=== PATIENT | female | born 1955 | race Caucasian/White ===

== ENCOUNTER → 2017-08-24 | Outpatient (CLI) | payer OTHER ==
--- NOTE | 2017-08-24 17:39 | WOMENS IMAGING REPORT ---
EXAM DESCRIPTION: 3D SCREENING MAMMO BILAT COMPLETED DATE/TIME: 08/24/2017 10:46 am REASON FOR STUDY: ROUTINE SCREENING; Z12.31 Z12.31 ENCNTR SCREEN MAMMOGRAM FOR MALIGNANT NEOPLASM O F [place] COMPARISON: Multiple since 2009 TECHNIQUE: Standard craniocaudal and mediolateral oblique views of each breast recorded using digita l acquisition and breast tomosynthesis. LIMITATIONS: None. FINDINGS: Findings present which are benign by mammographic criteria. No suspicious masses, calcifi cations or architectural distortion. Pertinent benign findings: Coarse dense benign appearing calcification right upper outer quadrant fro m fibroadenoma. Read with the assistance of CAD. .[facility] - R2 Cenova Version 1.3 .[facility] - R2 Cenova Version 1.3 .[facility] - R2 Cenova Version 2.4 .[facility] [place] [place] - R2 Cenova Version 2.4 .[facility] - R2 [employer]ov[employer]ual Aids Technician Version 9.2 Benign mammographic findings may include one or more of the following: Smooth masses, popcorn/rim/co arse calcifications, asymmetries, post-procedure changes, and lesions with long-standing stability. IMPRESSION: BENIGN MAMMOGRAPHIC FINDINGS. BIRADS 2 BREAST DENSITY: c. The breasts are heterogeneously dense, which may obscure small masses. BIRAD: 2 BENIGN FINDING(S) RECOMMENDATION: RECOMMENDATION: ROUTINE SCREENING Please continue yearly bilateral screening tomosynthesis in August 2018 COMMENT: The patient has been notified of the results by letter per SA requirements. Additional no tification policies are in place for contacting patient with suspicious or incomplete findings. Quality ID #[id number]: The [employer] recommends an annual screening mammogram for women aged 40 years or over. This facility utilizes a reminder system to ensure that all patients receive reminder letters, and/or direct phone calls for appointments. This includes reminders for routine scr eening mammograms, diagnostic mammograms, or other Breast Imaging Interventions when appropriate. Th is patient will be placed in the appropriate reminder system. The [employer] (ACR) has developed recommendations for screening MRI of the breast s in certain patient populations, to be used in conjunction with mammography. Breast MRI surveillanc e may be appropriate for women with more than 20% lifetime risk of developing breast cancer as deter mined by genetic testing, significant family history of the disease, or history of mantle radiation f or Hodgkins Disease. ACR Practice Guidelines 2008. DBT Technology DBT is a type of tomographic mammography. With conventional mammography, overlapping breast tissue ma y make lesions difficult to detect, even with good compression. DBT uses an x-ray tube that rotates a round the breast, taking images at different angles. These images are then combined to create thin sl ices of the breast that the radiologist can view as a 3D reconstruction. The Hologic unit can perform full-field digital mammograms (2D imaging); or DBT (3D imaging); or both, in a combination mode that quickly performs both the mammogram and the tomosynthesis scan while the breast is still compressed. PQRS 6045F: Fluoroscopic imaging is not utilized for breast tomosynthesis. TECHNICAL DOCUMENTATION: FINDING NUMBER: (1) ASSESSMENT: (1) JOB ID: [id number] [employer]- All Rights Reserved
== END ==
LOC: WI 10:11
PROVIDERS: ATTEND Internal Medicine
DX: Z12.31 Encounter for screening mammogram for malignant neoplasm of breast (principal)
CPT/HCPCS: 77063; G0202; 77067

== ENCOUNTER → 2017-12-03 | Outpatient (CLI) | payer OTHER ==
--- NOTE | 2017-12-05 09:17 | WOMENS IMAGING REPORT ---
EXAM DESCRIPTION: U/S BREAST UNILAT LIMITED COMPLETED DATE/TIME: 12/03/2017 11:14 am REASON FOR STUDY: UNSPECIFIED LUMP; N63.10 N63.10 UNSPECIFIED LUMP IN THE RIGHT BREAST, UNSPECIFIED ROSSY COMPARISON: Mammograms 08/24/2017, 08/07/2016, 04/01/2013, 07/22/2010 TECHNIQUE: Real-time and static grayscale imaging performed of the right breast targeted to the area of clinical concern. Selected color Doppler images recorded. LIMITATIONS: None. FINDINGS: In the area of palpable abnormality, a 2.3 x 2.3 x 1.7 cm mass is present, ill-defined and lobular in shape with internal color flow. This highly suspicious for malignancy and would be rekha ble to ultrasound-guided core biopsy with post biopsy clip placement. Prior mammograms were reviewed. Patient has heterogeneously dense breast tissue. Breast MRI prior t o ultrasound-guided core biopsy may be useful, to evaluate for any other mammographically occult lesi ons which would require biopsy. These findings were discussed with Dr. Avilez, 12/05/2017, 0910 hour s IMPRESSION: 2.3 x 2.3 x 1.7 cm malignant appearing mass right breast 10 to 11 o'clock position. Ult rasound-guided core biopsy is recommended. BIRAD: 5 Highly suggestive of malignancy. Appropriate action should be taken. RECOMMENDATION: RECOMMENDED FOLLOW-UP: Ultrasound-guided core biopsy right breast mass at 10 to 11 o 'clock position, with post biopsy clip placement. Consider pre biopsy MRI of the breasts with contrast. COMMENT: Findings discussed with Dr. Avilez, 12/05/2017, 0910 hours The [employer] [place] [employer] (ACR) has developed recommendations for screening MRI of the breast s in certain patient populations, to be used in conjunction with mammography. Breast MRI surveillanc e may be appropriate for women with more than 20% lifetime risk of developing breast cancer as deter mined by genetic testing, significant family history of the disease, or history of mantle radiation f or Hodgkins Disease. ACR Practice Guidelines 2008. TECHNICAL DOCUMENTATION: JOB ID: [id number] [employer]- All Rights Reserved
== END ==
LOC: WI 10:31
PROVIDERS: ATTEND Specialist
DX: N63.10 Unspecified lump in the right breast, unspecified quadrant (principal)
CPT/HCPCS: 76642

== ENCOUNTER → 2017-12-17 | Day surgery (SDC) | payer OTHER ==
[~2017-12-17] MED LIST: LIDOCAINE 2% INJ (20 MG/ML) 20 ML MDV ONE
--- NOTE | 2017-12-20 16:57 | WOMENS IMAGING REPORT ---
EXAM DESCRIPTION: U/S BREAST BX COMPLETED DATE/TIME: 12/17/2017 2:21 pm REASON FOR STUDY: BREAST LUMP N63.0 UNSPECIFIED LUMP IN UNSPECIFIED BREAST COMPARISON: Multiple previous mammograms TECHNIQUE: The procedure was discussed with the patient and the patient agreed to proceed. The patient was scanned and the palpable mass in the 10 to 11 o'clock position 7 cm from the nipple o f the right breast was localized. This correlates with the area of concern on prior imaging studies. This area was targeted for ultrasound-guided core biopsy. After sterile skin prep and 3.0 mL local lidocaine 1% for skin and deep tissue anesthesia, a 14 gauge coaxial core biopsy needle was used to obtain several cores of tissue from the lesion. Under ultras ound guidance, a ribbon clip was placed in the areas sampled. There were no immediate post-procedure complications. MAMMOGRAM: Postprocedure mammogram was not performed. 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 This could represent phylloides tumor in a pre-existing fibroadenoma. Path ology recommends excisional biopsy for further evaluation. LIMITATIONS: None. FINDINGS: Ultrasound guided breast biopsy as described above. 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 GRIMALDO 1430 HOURS 12/19/2017. COMMUNICATION: FINDINGS WERE DISCUSSED WITH THE PATIENT, 1550 HOURS, 12/19/2017. SHE UNDERSTANDS THAT THIS IS A POTENTIALLY MALIGNANT LESION WHICH REQUIRES EXCISIONAL BIOPSY. SHE HAS A FOLLOW-UP APPOINT MENT WITH DR. FERRIS, 12/21/2017. Patient medication list reviewed: Yes- Quality ID# [id number]:Eligible professional attests to documenting i n the medical record they obtained, updated, or reviewed the patient's current medications. TECHNICAL DOCUMENTATION: JOB ID: [id number] [employer]- All Rights Reserved
== END ==
LOC: WI 12:56
PROVIDERS: ATTEND Specialist
PROC: 0HBT3ZX Excision of Right Breast, Percutaneous Approach, Diagnostic (ICD-10-PCS; principal; 2017-12-17)
DX: N63.0 Unspecified lump in unspecified breast (principal)
CPT/HCPCS: 88342 ×2; 88341 ×2; 88305 ×2; 19083; J3490

== ENCOUNTER → 2017-12-27 | Outpatient (CLI) | payer OTHER ==
--- NOTE | 2017-12-27 10:02 | RADIOLOGY REPORT (SQ) ---
EXAM DESCRIPTION: CT ABD/PELVIS WITH IV ONLY; CT CHEST WITH COMPLETED DATE/TIME: 12/27/2017 9:09 am REASON FOR STUDY: BREAST CA (C50.411) C50.411 MALIG NEOPLM OF UPPER-OUTER QUADRANT OF RIGHT FEMALE CONTRAST TYPE AND DOSE: contrast/concentration: Isovue 370.00 mg/ml; Total Contrast Delivered: 99.0 ml; Total Saline Delivered: 72.0 ml RENAL FUNCTION: NA COMPARISON: 08/23/2007 TECHNIQUE: CT scan of the chest performed using helical scanning technique with dynamic intravenous contrast injection. Images reviewed with lung, soft tissue and bone windows. Reconstructed coronal a nd sagittal MPR images reviewed. All images stored on PACS. All CT scanners at this facility use dose modulation, iterative reconstruction, and/or weight based d osing when appropriate to reduce radiation dose to as low as reasonably achievable (ALARA). [facility]: Dose Right [facility]: CareDose [facility]: Dose Right [facility]: Teradose 4D [facility]: Teros RADIATION DOSE: CT Rad equipment meets quality standard of care and radiation dose reduction techniq ues were employed. CTDIvol: 8.7 - 14.3 mGy. DLP: 1788 mGy-cm.. LIMITATIONS: None. FINDINGS: AXILLAE: No axillary adenopathy seen. Small axillary nodes noted bilaterally. CHEST WALL: No masses. No subcutaneous air. LUNGS: There are diffuse bilateral pulmonary nodules consistent with metastases. The largest in the left upper lobe measures 2.1 x 1.8 cm. The largest in the right upper lobe measures 1.4 x 1.4 cm. PLEURA: No effusions. No calcifications. THYROID: No masses or significant asymmetry. HILAR AND MEDIASTINAL STRUCTURES: No identified masses or abnormal nodes. AORTA AND GREAT VESSELS: No aneurysm. No dissection. PULMONARY ARTERIES: No abnormality of the pulmonary arteries. HEART: The heart is normal. HARDWARE AND LIFELINES: None. BONES: No bony metastases seen. No osteoblastic or osteolytic lesions. OTHER: There is a 2.4 x 3.8 by 3.4 cm partially calcified irregular mass right breast laterally consi stent with history of biopsy proven carcinoma. Skin thickening is noted adjacent to this region. IMPRESSION: EVIDENCE OF RIGHT BREAST MASS CORRESPONDING TO KNOWN CARCINOMA. BILATERAL PULMONARY MET ASTASES. OTHERWISE, NORMAL CT CHEST WITH CONTRAST. COMPARISON: None. RADIATION DOSE: CT Rad equipment meets quality standard of care and radiation dose reduction techniq ues were employed. CTDIvol: 8.7 - 14.3 mGy. DLP: 1788 mGy-cm.mGy. TECHNIQUE: CT scan of the abdomen and pelvis performed with intravenous and oral contrast using harriet dameon scanning technique with dynamic intravenous contrast injection. Images reviewed with lung, soft tissue and bone windows. Reconstructed coronal and sagittal MPR images reviewed. Delayed images for evaluation of the urinary system also acquired and evaluated. All images stored on PACS. All CT scanners at this facility use dose modulation, iterative reconstruction, and/or weight based d osing when appropriate to reduce radiation dose to as low as reasonably achievable (ALARA). [facility]: Dose Right [facility]: SureCare [facility]: Dose Right [facility]: Teradose 4D [facility]: Teros FINDINGS: LIVER: No abnormality seen. No hepatic metastases seen. SPLEEN: No abnormality seen. PANCREAS: No abnormality seen. GALLBLADDER: Cholelithiasis. ADRENAL GLANDS: No significant masses or asymmetry. RIGHT KIDNEY AND URETER: No abnormality seen. LEFT KIDNEY AND URETER: No abnormality seen. AORTA AND VESSELS: Atherosclerotic change of the infrarenal abdominal aorta and iliac vessels. RETROPERITONEUM: No retroperitoneaNo aneurysm. No dissection. Renal arteries, SMA, celiac without sinan nosis.l adenopathy, hemorrhage or masses. LARGE AND SMALL BOWEL: Colonic diverticulosis. APPENDIX: Not seen. ABDOMINAL WALL: Umbilical hernia containing fat. PERITONEAL CAVITY: No free air. No free fluid. No peritoneal implants or masses. PELVIS: Post hysterectomy and appendectomy. Normal bladder. BONES: Multilevel lumbar spondylosis. Degenerative disc disease at L5-S1. Minimal posterior central disc protrusion L5-S1 IMPRESSION: CHOLELITHIASIS. OTHERWISE, NORMAL CT ABDOMEN AND PELVIS WITH CONTRAST. TECHNICAL DOCUMENTATION: JOB ID: [id number] SD-69 Quality ID # 436: Final reports with documentation of one or more dose reduction techniques (e.g., Au tomated exposure control, adjustment of the mA and/or kV according to patient size, use of iterative reconstruction technique) 2010 [employer]- All Rights Reserved
== END ==
LOC: RAD 08:08
PROVIDERS: ATTEND Internal Medicine
DX: C50.411 Malignant neoplasm of upper-outer quadrant of right female breast (principal); C78.02 Secondary malignant neoplasm of left lung; C78.01 Secondary malignant neoplasm of right lung
CPT/HCPCS: 71260; 74177; 82565

== ENCOUNTER → 2017-12-27 | Outpatient (CLI) | payer OTHER ==
[2017-12-27 13:07] LABS: A TYPE INFLUENZA AG NEGATIVE (NEGATIVE); B INFLUENZA AG NEGATIVE (NEGATIVE)
== END ==
LOC: OD 12:12
PROVIDERS: ATTEND Internal Medicine
DX: J11.1 Influenza due to unidentified influenza virus with other respiratory manifestations (principal)
CPT/HCPCS: 87804

== ENCOUNTER → 2017-12-28 | Outpatient (CLI) | payer OTHER ==
--- NOTE | 2017-12-28 10:12 | RADIOLOGY REPORT (SQ) ---
EXAM DESCRIPTION: MRI BREAST BILAT W AND/OR WO COMPLETED DATE/TIME: 12/28/2017 8:41 am REASON FOR STUDY: BREAST CA (C50.411) C50.411 MALIG NEOPLM OF UPPER-OUTER QUADRANT OF RIGHT FEMALE COMPARISON: None. PATHOLOGIC CORRELATION: None. CONTRAST TYPE AND DOSE: 20 mL Prohance. RENAL FUNCTION: GFR > 60. TECHNIQUE: MR imaging performed with a dedicated breast coil. Pre contrast T1 and T2 weighted images . Pre contrast and post contrast enhanced T1 weighted images with fat saturation. Subtraction images, 3D thick and thin MIPS, and kinetic analysis performed on an independent workstat ion. ([employer]Mosa workstation) Magnet strength: 1.5 T LIMITATIONS: None. FINDINGS: BREAST DENSITY: b. There are scattered areas of fibroglandular density. BACKGROUND PARENCHYMAL ENHANCEMENT:Minimal. RIGHT BREAST: Index enhancing lesion in the upper outer quadrant middle 3rd. No clumped, regional/s egmental ductal enhancement. CHEST WALL: Normal tissue planes. No abnormal internal mammary nodes. AXILLA: Normal axillary and retro-pectoral nodes. LEFT BREAST:No enhancing or suspicious masses. No clumped, regional/segmental ductal enhancement. CHEST WALL: Normal tissue planes. No abnormal internal mammary nodes. AXILLA: Normal axillary and retro-pectoral nodes. OTHER:No identified liver, bone, or lung lesions. No other significant incidental findings. IMPRESSION: Known malignancy right breast. No evidence of multifocal or contralateral malignancy. BIRAD: RIGHT BREAST: 6 Known biopsy-proven malignancy. Appropriate action should be taken. LEFT BREAST: 1 Negative. RECOMMENDATION: RECOMMENDED FOLLOW-UP: Per ordering provider. TECHNICAL DOCUMENTATION: JOB ID: [id number] [employer]- All Rights Reserved
== END ==
LOC: RAD 07:03
PROVIDERS: ATTEND Internal Medicine
DX: C50.411 Malignant neoplasm of upper-outer quadrant of right female breast (principal)
CPT/HCPCS: A9576; C8906; 77059

== ENCOUNTER 2018-01-01 09:03 | Day surgery (SDC) | payer OTHER ==
[2018-01-01 10:52] LABS: HEMATOCRIT 35.3 % (36.0-47.0); HEMOGLOBIN 11.7 g/dL (12.0-15.5); MEAN CORPUSCULAR HEMOGLOBIN 28.2 pg (27.0-33.4); MEAN CORPUSCULAR HGB CONC 33.1 g/dL (32.0-36.0); MEAN CORPUSCULAR VOLUME 85 fl (80-97); PLATELET COUNT 328 10^3/uL (150-450); RED BLOOD COUNT 4.15 10^6/uL (3.72-5.28); RED CELL DISTRIBUTION WIDTH 13.6 % (11.5-14.0); WHITE BLOOD COUNT 10.6 10^3/uL (4.0-10.5)
[2018-01-01 10:55] LABS: INTERNATIONAL RATION (INR) 0.93; PROTHROMBIN TIME 13.2 SEC (11.4-15.4)
[2018-01-01 10:56] LABS: PARTIAL THROMBOPLASTIN TIME 40.5 SEC (23.5-35.8)
[2018-01-01 11:00] LABS: BLOOD UREA NITROGEN 10 mg/dL (7-20)
[2018-01-01] MEDS ORDERED: LIDOCAINE 1% INJ-PF (10 MG/ML) 30 ML SDV ONE (11:40)
[2018-01-01] MEDS ORDERED: MIDAZOLAM 2 MG/2 ML INJ ONE (12:04)
[2018-01-01] MEDS ORDERED: FENTANYL CITRATE INJ/PF 100 MCG/2 ML AMPUL ONE (12:05)
--- NOTE | 2018-01-01 12:56 | RADIOLOGY REPORT (SQ) ---
EXAM DESCRIPTION: CHEST SINGLE VIEW COMPLETED DATE/TIME: 01/01/2018 12:46 pm REASON FOR STUDY: POST LUNG BIOPSY COMPARISON: CT chest abdomen pelvis 12/27/2017 EXAM PARAMETERS: NUMBER OF VIEWS: One view. TECHNIQUE: Single frontal radiographic view of the chest acquired. RADIATION DOSE: NA LIMITATIONS: None. FINDINGS: LUNGS AND PLEURA: Multiple small lung nodules are present bilaterally worrisome for metast atic stone distal tibia. This chest film is immediately post biopsy of the left lower lobe nodule. No left-sided pneumothorax . No right or left pleural effusion. MEDIASTINUM AND HILAR STRUCTURES: No masses. Contour normal. HEART AND VASCULAR STRUCTURES: Heart normal in size. Normal vasculature. BONES: No acute findings. HARDWARE: None in the chest. OTHER: No other significant finding. IMPRESSION: No pneumothorax post left lung biopsy. TECHNICAL DOCUMENTATION: JOB ID: [id number] [employer]- All Rights Reserved
--- NOTE | 2018-01-01 14:49 | RADIOLOGY REPORT (SQ) ---
EXAM DESCRIPTION: CT BIOPSY LUNG/MEDIASTINUM; CT NEEDLE PLACEMENT COMPLETED DATE/TIME: 01/01/2018 12:44 pm; 01/01/2018 12:43 pm REASON FOR STUDY: MALIGNANT NEOPLASM OF UPPER OUTER QUADRANT OF R FEMALE BREAST R91.8 OTHER [facility] ABNORMAL FINDING OF LUNG FIELD C50.411 MALIG NEOPLM OF UPPER-OUTER QUADRANT OF RIGHT FEMALE PATHOLOGY FROM BREAST BIOPSY 12/17/2017 YIELDS A DIAGNOSIS OF ATYPICAL SPINDLE CELL LESION. COMPARISON: CT chest abdomen pelvis 12/27/2017 TECHNIQUE: CT guided biopsy of the left lower lobe lung parenchymal nodule performed with conscious sedation. CT Fluoroscopy Time: 15.[address] scanners at this facility use dose modulation, iterative reconstruction, and/or weight based d osing when appropriate to reduce radiation dose to as low as reasonably achievable (ALARA). [facility]: Dose Right [facility]: CareDose [facility]: Dose Right [facility]: Teradose 4D [facility]: Smart [employer] RADIATION DOSE: mGy. FINDINGS: The procedure was discussed with the patient and the patient agreed to the procedure. Prio r to the procedure, a time out was performed to verify the patient's identity and planned procedure. IV sedation was administered and physician direction by the registered nurse using 1.5 milligrams of Versed and 75 micrograms of fentanyl. Physiologic monitoring was provided before, during, and after s edation. The total sedation time was 45 minutes. Documentation face to face time, the performing proceduralist, spent monitoring the patient: [address] scanning was performed to localize the percutaneous site for the biopsy approach. After sterile skin prep and local lidocaine for skin and deep tissue anesthesia, a coaxial biopsy nee dle was used to obtain multiple cores of tissue. The biopsy tract was embolized with a [employer] clos ure. The biopsy tissue was submitted to the lab in formalin. Post procedure CT fluoro demonstrates a trace pneumothorax at the biopsy site less than 10 mL in volume. Pathology is pending at the time of dictation. IMPRESSION: CT GUIDED BIOPSY OF THE LEFT LOWER LOBE LUNG MASS PERFORMED WITHOUT IMMEDIATE COMPLICATI ON. PATHOLOGY PENDING. IV CONSCIOUS SEDATION COMMENT: Quality ID 145: Final reports for procedures using fluoroscopy that document radiation exp osure indices, or exposure time and number of fluorographic images (if radiation exposure indices are not available) Patient medication list reviewed: Yes- Quality ID# 130:Eligible professional attests to documenting i n the medical record they obtained, updated, or reviewed the patient's current medications.. TECHNICAL DOCUMENTATION: JOB ID: [id number] Quality ID# 436: Final reports with documentation of one or more dose reduction techniques (e.g., Aut omated exposure control, adjustment of the mA and/or kV according to patient size, use of iterative r econstruction technique) 2010 [employer]- All Rights Reserved
--- NOTE | 2018-01-01 14:49 | RADIOLOGY REPORT (SQ) ---
EXAM DESCRIPTION: CT BIOPSY LUNG/MEDIASTINUM; CT NEEDLE PLACEMENT COMPLETED DATE/TIME: 01/01/2018 12:44 pm; 01/01/2018 12:43 pm REASON FOR STUDY: MALIGNANT NEOPLASM OF UPPER OUTER QUADRANT OF R FEMALE BREAST R91.8 OTHER [facility] ABNORM[facility] FINDING OF LUNG FIELD C50.411 MALIG NEOPLM OF UPPER-OUTER QUADRANT OF RIGHT FEMALE PATHOLOGY FROM BREAST BIOPSY 12/17/2017 YIELDS A DIAGNOSIS OF ATYPICAL SPINDLE CELL LESION. COMPARISON: CT chest abdomen pelvis 12/27/2017 TECHNIQUE: CT guided biopsy of the left lower lobe lung parenchymal nodule performed with conscious sedation. CT Fluoroscopy Time: 15.[address] scanners at this facility use dose modulation, iterative reconstruction, and/or weight based d osing when appropriate to reduce radiation dose to as low as reasonably achievable (ALARA). [facility]: Dose Right [facility]: CareDose [facility]: Dose Right [facility]: Teradose 4D [facility]: Smart [employer] RADIATION DOSE: mGy. FINDINGS: The procedure was discussed with the patient and the patient agreed to the procedure. Prio r to the procedure, a time out was performed to verify the patient's identity and planned procedure. IV sedation was administered and physician direction by the registered nurse using 1.5 milligrams of Versed and 75 micrograms of fentanyl. Physiologic monitoring was provided before, during, and after s edation. The total sedation time was 45 minutes. Documentation face to face time, the performing proceduralist, spent monitoring the patient: [address] scanning was performed to localize the percutaneous site for the biopsy approach. After sterile skin prep and local lidocaine for skin and deep tissue anesthesia, a coaxial biopsy nee dle was used to obtain multiple cores of tissue. The biopsy tract was embolized with a [employer] clos ure. The biopsy tissue was submitted to the lab in formalin. Post procedure CT fluoro demonstrates a trace pneumothorax at the biopsy site less than 10 mL in volume. Pathology is pending at the time of dictation. IMPRESSION: CT GUIDED BIOPSY OF THE LEFT LOWER LOBE LUNG MASS PERFORMED WITHOUT IMMEDIATE COMPLICATI ON. PATHOLOGY PENDING. IV CONSCIOUS SEDATION COMMENT: Quality ID 145: Final reports for procedures using fluoroscopy that document radiation exp osure indices, or exposure time and number of fluorographic images (if radiation exposure indices are not available) Patient medication list reviewed: Yes- Quality ID# 130:Eligible professional attests to documenting i n the medical record they obtained, updated, or reviewed the patient's current medications.. TECHNICAL DOCUMENTATION: JOB ID: [id number] Quality ID# 436: Final reports with documentation of one or more dose reduction techniques (e.g., Aut omated exposure control, adjustment of the mA and/or kV according to patient size, use of iterative r econstruction technique) 2010 [employer]- All Rights Reserved
[2018-01-01 14:50] VITALS: BP 138/79
--- NOTE | 2018-01-01 14:51 | RADIOLOGY REPORT (SQ) ---
EXAM DESCRIPTION: CHEST SINGLE VIEW COMPLETED DATE/TIME: 01/01/2018 2:36 pm REASON FOR STUDY: POST LUNG BIOPSY *2 HOUR FILM* COMPARISON: 01/01/2018, 1241 hours chest x-ray CT-guided left lower lobe lung nodule biopsy earlier today EXAM PARAMETERS: NUMBER OF VIEWS: One view. TECHNIQUE: Single frontal radiographic view of the chest acquired. RADIATION DOSE: NA LIMITATIONS: None. FINDINGS: LUNGS AND PLEURA: No left-sided pneumothorax. Multiple small pulmonary nodules are present bilaterally. No pleural effusion. MEDIASTINUM AND HILAR STRUCTURES: No masses. Contour normal. HEART AND VASCULAR STRUCTURES: Heart normal in size. Normal vasculature. BONES: No acute findings. HARDWARE: None in the chest. OTHER: No other significant finding. IMPRESSION: No pneumothorax 2 hours post left lung biopsy TECHNICAL DOCUMENTATION: JOB ID: [id number] [employer]- All Rights Reserved
== END 2018-01-01 14:55 | disposition home or self-care (01) ==
LOC: RAD 09:03
PROVIDERS: ATTEND Internal Medicine
PROC: 0BBL3ZX Excision of Left Lung, Percutaneous Approach, Diagnostic (ICD-10-PCS; principal; 2018-01-01)
DX: C50.411 Malignant neoplasm of upper-outer quadrant of right female breast (principal); R91.8 Other nonspecific abnormal finding of lung field
CPT/HCPCS: 36415; 84520; 82565; 85027; 85610; 85730; 88305 ×2; 71045; 77012; 32405; J2250; J3010; J3490

== ENCOUNTER 2018-11-24 15:22 | Inpatient (IN) | payer OTHER ==
[2018-11-24 15:39] LABS: ABSOLUTE BASOPHILS # (AUTO) 0.1 10^3/uL (0.0-0.2); ABSOLUTE LYMPHOCYTES (AUTO) 1.8 10^3/uL (0.5-4.7); ABSOLUTE MONOCYTES (AUTO) 0.9 10^3/uL (0.1-1.4); ABSOLUTE NEUT (AUTO) 5.8 10^3/uL (1.7-8.2); BASOPHILS % (AUTO) 1.1 % (0-2); HEMATOCRIT 24.9 % (36.0-47.0); HEMOGLOBIN 8.1 g/dL (12.0-15.5); LYMPHOCYTES % (AUTO) 20.6 % (13-45); MEAN CORPUSCULAR HEMOGLOBIN 26.5 pg (27.0-33.4); MEAN CORPUSCULAR HGB CONC 32.6 g/dL (32.0-36.0); MEAN CORPUSCULAR VOLUME 81 fl (80-97); MONOCYTES % (AUTO) 10.5 % (3-13); PLATELET COUNT 615 10^3/uL (150-450); RED BLOOD COUNT 3.06 10^6/uL (3.72-5.28); RED CELL DISTRIBUTION WIDTH 18.5 % (11.5-14.0); SEGMENTED NEUTROPHILS % (AUTO) 67.8 % (42-78); TOTAL CELLS COUNTED % (AUTO) 100 %; WHITE BLOOD COUNT 8.5 10^3/uL (4.0-10.5)
[2018-11-24] MEDS ORDERED: ONDANSETRON HCL INJ/PF 4 MG/2 ML SDV IV ONE (15:47)
[2018-11-24 15:48] LABS: INTERNATIONAL RATION (INR) 1.17; PROTHROMBIN TIME 15.5 SEC (11.4-15.4)
--- NOTE | 2018-11-24 15:51 | ER Document Report ---
ED General - General Chief Complaint: Shortness Of Breath Stated Complaint: SHORT OF BREATH Time Seen by Provider: 11/24/18 15:37 TRAVEL OUTSIDE OF THE [place] IN LAST 30 DAYS: No - HPI Notes: Patient is a 63-year-old female that presents to the emergency department for chief complaint of shortness of breath nausea and vomiting. Patient has breast cancer with metastasis to her lungs and brain. She was st arted on a new chemotherapy medication yesterday. Family states she tolerated the morning dose okay but after the second dose she began having issues. The reports she has not been able to tolerate anything orally since then. She has had multiple episodes of vomiting. She is complained of some epigastric abdominal discomfort with vomiting. Patient then began to feel short of breath today. She does wear 3-1/2 L nasal cannula oxygen at all times. She has been coughing but denies sputum. She denies fevers but feels sweaty. She denies any diarrhea and dysuria and urinary frequency. Past Medical History: Metastatic breast cancer Past Surgical History: Ulcerative bladder repair Social History: Reviewed in chart Family History: Reviewed and noncontributory for presenting illness Allergies: Reviewed, see documented allergy list. REVIEW OF SYSTEMS: CONSTITUTIONAL : No fever No chills diaphoresis No recent illness EENT: No vision changes No congestion No sore throat CARDIOVASCULAR: No chest pain No palpitations RESPIRATORY: shortness of breath cough No difficulty breathing GASTROINTESTINAL: No abdominal pain No nausea No vomiting No diarrhea GENITOURINARY: No dysuria No hematuria No difficulty urinating MUSCULOSKELETAL: No back pain No leg pain No arm pain SKIN: No rashes No lesions LYMPHATIC: No swollen, enlarged glands. NEUROLOGICAL: No lightheadedness No headache No weakness No paresthesias PSYCHIATRIC: No anxiety No depression PHYSICAL EXAMINATION: Vital signs reviewed, nursing noted reviewed. GENERAL: Ill-appearing, well-nourished and in moderate acute distress. HEAD: Atraumatic, normocephalic. EYES: Eyes appear normal, extraocular movements intact, sclera anicteric, conjunctiva are normal. ENT: nares patent, oropharynx clear without exudates. Dry mucous membranes. NECK: Normal range of motion, supple without lymphadenopathy LUNGS: Breath sounds mildly diminished and clear to auscultation bilaterally and equal. No wheezes rales or rhonchi. HEART: Tachycardic rate and regular rhythm without murmurs ABDOMEN: Soft, nontender, normoactive bowel sounds. No rebound, guarding, or rigidity. No masses appreciated. EXTREMITIES: Nontender, good range of motion, no pitting or edema. NEUROLOGICAL: Decreased movement in the left upper extremity. GCS 15 PSYCH: Normal mood, normal affect. SKIN: Warm, diaphoretic, no rashes or lesions noted on exposed skin - Related Data Allergies/Adverse Reactions: Sulfa (Sulfonamide Antibiotics) Allergy (Intermediate, Verified 11/24/18 15:37) Hives acetaminophen [From Midol] Allergy (Mild, Verified 11/24/18 15:37) increase heart rate pamabrom [From Midol] Allergy (Mild, Verified 11/24/18 15:37) increase heart rate pyrilamine maleate [From Midol] Allergy (Mild, Verified 11/24/18 15:37) increase heart rate Past Medical History - Social History Smoking Status: Never Smoker Family History: Reviewed & Not Pertinent - Past Medical History Cardiac Medical History: Denies: Hx Coronary Artery Disease, Hx Heart Attack, Hx Hypertension Pulmonary Medical History: Reports: Hx Bronchitis, Hx Pneumonia Denies: Hx Asthma, Hx COPD Neurological Medical History: Denies: Hx Cerebrovascular Accident, Hx Seizures GI Medical History: Denies: Hx Hepatitis, Hx Hiatal Hernia, Hx Ulcer Musculoskeletal Medical History: Reports Hx Arthritis Infectious Medical History: Denies: Hx Hepatitis Past Surgical History: Reports: Hx Hysterectomy. Denies: Hx Mastectomy, Hx Open Heart Surgery, Hx Pacemaker - Immunizations Hx Diphtheria, Pertussis, Tetanus Vaccination: No Physical Exam - Vital signs Vitals: Resp Pulse Ox 14 82 L 11/24/18 15:32 11/24/18 15:32 Course - Re-evaluation Re-evalutation: 11/24/18 15:50 Vitals reviewed. Nursing notes reviewed. Patient is tachycardic and diaphoretic. She is meeting Sirs criteria and was started on IV fluids and given Zofran for nausea. Blood cultures and urine culture were ordered. Lactate was ordered. Patient's EKG shows tachycardia with no dysrhythmia or ischemic changes. - Vital Signs Vital signs: Temp Pulse Resp BP Pulse Ox 97.4 F 125 H 33 H 109/73 93 11/24/18 15:44 11/24/18 15:44 11/24/18 17:01 11/24/18 17:00 11/24/18 17:01 11/24/18 18:29 Vitals reviewed. Nursing notes reviewed. Patient is tachycardic at presentation and diaphoretic. She was started on 2 L IV hydration for concern of sepsis. Her lab work shows a normal WBC count with no neutropenia. Patient also has a normal lactate. ABG does show a pH of 7.26 with no hypercapnia or hypoxia. Patient's chest x-ray shows multiple masses which are known to her, there is no recent comparison to distinguish whether or not they are changing causing her to have shortness of breath. Her troponin did come back elevated at 0.079 and family states she was complaining of chest pain for the last few days. Patient states she does not have pain now. Her EKG shows no acute ischemic changes. Patient was given aspirin for her elevated troponin and chest pain. She has a urinary tract infection that will be treated with Rocephin. Her renal function is elevated with no recent comparison which may be related to her dehydration. Patient will be admitted to the hospital for further management. Case discussed with Dr. lancaster who accepts admission. Laboratory 11/24/18 11/24/18 11/24/18 14:48 14:48 14:48 WBC 8.5 RBC 3.06 L Hgb 8.1 L Hct 24.9 L MCV 81 MCH 26.5 L MCHC 32.6 RDW 18.5 H Plt Count 615 H Seg Neutrophils % 67.8 Lymphocytes % 20.6 Monocytes % 10.5 Eosinophils % 0.0 Basophils % 1.1 Absolute Neutrophils 5.8 Absolute Lymphocytes 1.8 Absolute Monocytes 0.9 Absolute Eosinophils 0.0 Absolute Basophils 0.1 PT 15.5 H INR 1.17 VBG pH VBG pCO2 VBG HCO3 VBG Base Excess Sodium Cancelled Potassium Cancelled Chloride Cancelled Carbon Dioxide Cancelled Anion Gap Cancelled BUN Cancelled Creatinine Cancelled Est GFR ( Amer) Cancelled Est GFR (Non-Af Amer) Cancelled Glucose Cancelled Lactic Acid Calcium Cancelled Total Bilirubin Cancelled Direct Bilirubin Cancelled Neonat Total Bilirubin Cancelled Neonat Direct Bilirubin Cancelled Neonat Indirect Bili Cancelled AST Cancelled ALT Cancelled Alkaline Phosphatase Cancelled Troponin I Total Protein Cancelled Albumin Cancelled Urine Color Urine Appearance Urine pH Ur Specific [place] Urine Protein Urine Glucose (UA) Urine Ketones Urine Blood Urine Nitrite Urine Bilirubin Urine Urobilinogen Ur Leukocyte Esterase Urine WBC (Auto) Urine RBC (Auto) Squamous Epi Cells Auto Urine Mucus (Auto) Urine Ascorbic Acid Influenza A (Rapid) Influenza B (Rapid) 11/24/18 11/24/18 11/24/18 14:48 16:00 16:00 WBC RBC Hgb Hct MCV MCH MCHC RDW Plt Count Seg Neutrophils % Lymphocytes % Monocytes % Eosinophils % Basophils % Absolute Neutrophils Absolute Lymphocytes Absolute Monocytes Absolute Eosinophils Absolute Basophils PT INR VBG pH 7.26 L VBG pCO2 53.7 VBG HCO3 23.6 VBG Base Excess -4.2 Sodium Potassium Chloride Carbon Dioxide Anion Gap BUN Creatinine Est GFR ( Amer) Est GFR (Non-Af Amer) Glucose Lactic Acid 1.9 Calcium Total Bilirubin Direct Bilirubin Neonat Total Bilirubin Neonat Direct Bilirubin Neonat Indirect Bili AST ALT Alkaline Phosphatase Troponin I Cancelled Total Protein Albumin Urine Color Urine Appearance Urine pH Ur Specific [place] Urine Protein Urine Glucose (UA) Urine Ketones Urine Blood Urine Nitrite Urine Bilirubin Urine Urobilinogen Ur Leukocyte Esterase Urine WBC (Auto) Urine RBC (Auto) Squamous Epi Cells Auto Urine Mucus (Auto) Urine Ascorbic Acid Influenza A (Rapid) Influenza B (Rapid) 11/24/18 11/24/18 11/24/18 16:00 16:00 16:00 WBC RBC Hgb Hct MCV MCH MCHC RDW Plt Count Seg Neutrophils % Lymphocytes % Monocytes % Eosinophils % Basophils % Absolute Neutrophils Absolute Lymphocytes Absolute Monocytes Absolute Eosinophils Absolute Basophils PT INR VBG pH VBG pCO2 VBG HCO3 VBG Base Excess Sodium Cancelled Potassium Cancelled Chloride Cancelled Carbon Dioxide Cancelled Anion Gap Cancelled BUN Cancelled Creatinine Cancelled Est GFR ( Amer) Cancelled Est GFR (Non-Af Amer) Cancelled Glucose Cancelled Lactic Acid Calcium Cancelled Total Bilirubin Cancelled Direct Bilirubin Cancelled Neonat Total Bilirubin Cancelled Neonat Direct Bilirubin Cancelled Neonat Indirect Bili Cancelled AST Cancelled ALT Cancelled Alkaline Phosphatase Cancelled Troponin I Cancelled Total Protein Cancelled Albumin Cancelled Urine Color Urine Appearance Urine pH Ur Specific [place] Urine Protein Urine Glucose (UA) Urine Ketones Urine Blood Urine Nitrite Urine Bilirubin Urine Urobilinogen Ur Leukocyte Esterase Urine WBC (Auto) Urine RBC (Auto) Squamous Epi Cells Auto Urine Mucus (Auto) Urine Ascorbic Acid Influenza A (Rapid) NEGATIVE Influenza B (Rapid) NEGATIVE 11/24/18 11/24/18 11/24/18 17:12 17:12 17:48 WBC RBC Hgb Hct MCV MCH MCHC RDW Plt Count Seg Neutrophils % Lymphocytes % Monocytes % Eosinophils % Basophils % Absolute Neutrophils Absolute Lymphocytes Absolute Monocytes Absolute Eosinophils Absolute Basophils PT INR VBG pH VBG pCO2 VBG HCO3 VBG Base Excess Sodium 141.8 Potassium 4.3 Chloride 105 Carbon Dioxide 25 Anion Gap 12 BUN 86 H Creatinine 2.52 H Est GFR ( Amer) 23 L Est GFR (Non-Af Amer) 19 L Glucose 119 H Lactic Acid Calcium 10.7 H Total Bilirubin 0.3 Direct Bilirubin 0.1 Neonat Total Bilirubin Not Reportable Neonat Direct Bilirubin Not Reportable Neonat Indirect Bili Not Reportable AST 17 ALT 16 Alkaline Phosphatase 93 Troponin I 0.079 Total Protein 6.5 Albumin 3.5 Urine Color ORANGE Urine Appearance SLIGHTLY-CLOUDY Urine pH 5.0 Ur Specific [place] 1.014 Urine Protein NEGATIVE Urine Glucose (UA) NEGATIVE Urine Ketones NEGATIVE Urine Blood SMALL H Urine Nitrite POSITIVE H Urine Bilirubin NEGATIVE Urine Urobilinogen 2.0 H Ur Leukocyte Esterase NEGATIVE Urine WBC (Auto) 11 Urine RBC (Auto) 18 Squamous Epi Cells Auto <1 Urine Mucus (Auto) RARE Urine Ascorbic Acid NEGATIVE Influenza A (Rapid) Influenza B (Rapid) Chest X-Ray 11/24/18 15:25 IMPRESSION: Interval development of numerous bilateral pulmonary nodules/ masses. - Laboratory Result Diagrams: 11/24/18 14:48 11/24/18 17:12 Laboratory results interpreted by me: 11/24/18 11/24/18 11/24/18 14:48 14:48 16:00 RBC 3.06 L Hgb 8.1 L Hct 24.9 L MCH 26.5 L RDW 18.5 H Plt Count 615 H PT 15.5 H VBG pH 7.26 L BUN Creatinine Est GFR ( Amer) Est GFR (Non-Af Amer) Glucose Calcium Urine Blood Urine Nitrite Urine Urobilinogen 11/24/18 11/24/18 17:12 17:48 RBC Hgb Hct MCH RDW Plt Count PT VBG pH BUN 86 H Creatinine 2.52 H Est GFR ( Amer) 23 L Est GFR (Non-Af Amer) 19 L Glucose 119 H Calcium 10.7 H Urine Blood SMALL H Urine Nitrite POSITIVE H Urine Urobilinogen 2.0 H - EKG Interpretation by Me Additional EKG results interpreted by me: 11/24/18 15:51 Interpreted by myself 1530: sinus tachycardia, rate 133, left axis, no ectopy, no STEMI Discharge - Discharge Clinical Impression: Elevated troponin, Shortness of breath, Dehydration, RUBEN (acute kidney injury) UTI (urinary tract infection) Qualifiers: Urinary tract infection type: site unspecified Hematuria presence: with hematuria Qualified Code(s): N39.0 - Urinary tract infection, site not specified; R31.9 - Hematuria, unspecified Sepsis Qualifiers: Sepsis type: sepsis due to unspecified organism Qualified Code(s): A41.9 - Sepsis, unspecified organism Anemia Qualifiers: Anemia type: other cause Other causes of anemia: other cause, not classified Qualified Code(s): D64.89 - Other specified anemias Condition: Stable Disposition: ADMITTED INPATIENT Admitting Provider: Hospitalist Unit Admitted: Telemetry Referrals: GILDA SEN MD [Primary Care Provider] - Follow up as needed
--- NOTE | 2018-11-24 15:57 | RADIOLOGY REPORT (SQ) ---
EXAM DESCRIPTION: CHEST SINGLE VIEW COMPLETED DATE/TIME: 11/24/2018 3:45 pm REASON FOR STUDY: Shortness of breath, sepsis COMPARISON: 01/01/2018 EXAM PARAMETERS: NUMBER OF VIEWS: One view. TECHNIQUE: Single frontal radiographic view of the chest acquired. RADIATION DOSE: NA LIMITATIONS: None. FINDINGS: LUNGS AND PLEURA: Diffuse bilateral pulmonary nodules/ masses, increased from prior. No f ocal consolidation, pleural effusion, or pneumothorax. MEDIASTINUM AND HILAR STRUCTURES: Prominence of the right hilum. HEART AND VASCULAR STRUCTURES: Heart normal in size. Normal vasculature. BONES: No acute findings. HARDWARE: Right-sided chest port tip terminates at the cavoatrial junction. OTHER: No other significant finding. IMPRESSION: Interval development of numerous bilateral pulmonary nodules/ masses. TECHNICAL DOCUMENTATION: JOB ID: [id number] [employer]- All Rights Reserved Reading location - IP/workstation name: [email or web address]
[2018-11-24] MEDS: NORMAL SALINE 1000 ML 1,000 ML IV PRN ×2 (16:00→17:51)
[2018-11-24 16:25] LABS: VENOUS BLOOD BASE EXCESS -4.2 mmol/L; VENOUS BLOOD HCO3 23.6 mmol/L (20-32); VENOUS BLOOD PCO2 53.7 mmHg (35-63); VENOUS BLOOD PH 7.26 (7.30-7.42)
[2018-11-24 16:45] LABS: A TYPE INFLUENZA AG NEGATIVE (NEGATIVE); B INFLUENZA AG NEGATIVE (NEGATIVE)
--- NOTE | 2018-11-24 16:47 | EKG REPORT ---
SEVERITY:- ABNORMAL ECG - SINUS TACHYCARDIA LEFT AXIS DEVIATION LOW VOLTAGE THROUGHOUT BORDERLINE T ABNORMALITIES, ANT-LAT LEADS BORDERLINE ST ELEVATION, ANTEROLATERAL LEADS, THIS IS NEW COMPARED TO 06/12/14 EKG : Confirmed by: Johnathan Causey MD 24-Nov-2018 16:46:51
[2018-11-24 17:56] LABS: ALANINE AMINOTRANSFERASE 16 U/L (9-52); ALBUMIN 3.5 g/dL (3.5-5.0); ALKALINE PHOSPHATASE 93 U/L (38-126); ANION GAP 12 (5-19); ASPARTATE AMINO TRANSFERASE 17 U/L (14-36); BILIRUBIN,DIRECT 0.1 mg/dL (0.0-0.4); BILIRUBIN,TOTAL 0.3 mg/dL (0.2-1.3); BLOOD UREA NITROGEN 86 mg/dL (7-20); CALCIUM 10.7 mg/dL (8.4-10.2); CARBON DIOXIDE 25 mmol/L (22-30); CHLORIDE 105 mmol/L (98-107); GLUCOSE 119 mg/dL (75-110); POTASSIUM 4.3 mmol/L (3.6-5.0); SODIUM 141.8 mmol/L (137-145); TOTAL PROTEIN 6.5 g/dL (6.3-8.2)
[2018-11-24] MEDS ORDERED: ASPIRIN 81 MG TABLET, CHEWABLE PO ONE (18:01)
[2018-11-24 18:10] LABS: APPEARANCE,URINE SLIGHTLY-CLOUDY; BILIRUBIN,URINE NEGATIVE (NEGATIVE); GLUCOSE, URINE NEGATIVE (NEGATIVE); KETONES,URINE NEGATIVE (NEGATIVE); LEUKOCYTE ESTERASE,URINE NEGATIVE (NEGATIVE); NITRITE,URINE POSITIVE (NEGATIVE); PROTEIN,URINE NEGATIVE (NEGATIVE); URINE SPECIFIC GRAVITY 1.014
[2018-11-24 18:14] LABS: COLOR,URINE ORANGE
[2018-11-24] MEDS ORDERED: CEFTRIAXONE INJ 1000 MG VIAL IV ONE (18:15)
[2018-11-24] MEDS ORDERED: ONDANSETRON HCL INJ/PF 4 MG/2 ML SDV IV PRN (19:15)
[2018-11-24] MEDS ORDERED: MAGNESIUM HYDROXIDE SUSP 30 ML UDCUP PO PRN (19:15)
[2018-11-24] MEDS ORDERED: MAG HYDROX/AL HYDROX/SIMETH SUSP 30 ML UDCUP PO PRN (19:15)
[2018-11-24] MEDS ORDERED: ONDANSETRON 4 MG TAB.RAPDIS PO PRN (19:15)
[2018-11-24] MEDS ORDERED: MORPHINE SULFATE 10 MG/ML INJ IV PRN ×2 (19:26)
[2018-11-24] MEDS ORDERED: GUAIFENESIN/D-METHORPHAN (200-20 MG) SYRUP 10 ML PO PRN (19:28)
[2018-11-24] MEDS ORDERED: DOCUSATE SODIUM 100 MG CAPSULE PO ONE (20:00)
[2018-11-24] MEDS ORDERED: ACETAMINOPHEN 325 MG TABLET PO PRN (20:08)
[2018-11-24] MEDS ORDERED: ACETAMINOPHEN 650 MG SUPP.RECT PR PRN (20:08)
[2018-11-24 20:32] LABS: CREATINE KINASE MB 1.23 ng/mL (<4.55)
[2018-11-24] MEDS: MORPHINE SULFATE 10 MG/ML INJ IV PRN (20:34)
--- NOTE | 2018-11-24 20:37 | EKG REPORT ---
SEVERITY:- BORDERLINE ECG - SINUS TACHYCARDIA LEFT AXIS DEVIATION BORDERLINE R WAVE PROGRESSION, ANTERIOR LEADS : Confirmed by: Johnathan Causey MD 24-Nov-2018 20:35:42
[2018-11-24 20:40] LABS: TROPONIN I 0.099 ng/mL
[2018-11-24] MEDS: HEPARIN SOD (PORCINE) 5,000 UNIT/ML 1 ML SYRINGE SUBCUT SCH (22:29)
[2018-11-24] MEDS: DEXTROSE 5%-NORMAL SALINE 1,000 ML IV PRN (22:57)
[2018-11-24] MEDS: METOCLOPRAMIDE HCL INJ/PF 10 MG/2 ML SDV IV SCH (23:01)
[2018-11-25] MEDS ORDERED: METOCLOPRAMIDE HCL INJ/PF 10 MG/2 ML SDV IV SCH
[2018-11-25 02:11] LABS: CREATINE KINASE MB 1.34 ng/mL (<4.55)
[2018-11-25 02:21] LABS: TROPONIN I 0.102 ng/mL
[2018-11-25 02:31] LABS: ARTERIAL BLOOD BASE EXCESS -4.3 mmol/L; ARTERIAL BLOOD H2CO3 1.54 mmol/L (1.05-1.35); ARTERIAL BLOOD HCO3 22.4 mmol/L (20-24); ARTERIAL BLOOD O2 SATURATION 53.6 % (94-98); ARTERIAL BLOOD PH 7.26 (7.35-7.45)
[2018-11-25 02:32] LABS: ARTERIAL BLOOD FIO2 5L
[2018-11-25 02:34] LABS: ARTERIAL BLOOD PO2 32.7 mmHg (80-100)
--- NOTE | 2018-11-25 02:52 | PDOC H&P ---
History of Present Illness Admission Date/PCP: 11/24/18 18:35 GILDA SEN MD Patient complains of: Nausea and vomiting after chemotherapy History of Present Illness: KARLY GUTIÉRREZ is a 63 year old female who presented to the emergency room with a 1 day history of severe nausea and vomiting. She admits that she started a new chemotherapy medication on the day prior to admission and after the second dose of that medication began having severe nausea and vomiting with numerous episodes of emesis. She has been unable to keep oral fluids or solids on her stomach since that time. She further admits associated abdominal aching discomfort in the epigastric region, diaphoresis, a nonproductive cough and an increase in her normal level of dyspnea despite the use of home oxygen at 3-1/2 L/min per nasal cannula continuously. Her symptoms are aggravated by attempts at eating or drinking and she has not identified any ameliorating factors. She denies similar prior episodes, fever, chills, diarrhea, melena, hematochezia, hematemesis, dysuria, hematuria, urinary frequency and urinary urgency. In the emergency room she was found to be initially hypoxic and tachycardic. Her laboratory results showed a significantly elevated BUN and creatinine of 86 and 2.52 respectively. Her hemoglobin was noted to be 8.1 without a leukocytosis. Her urinalysis revealed pyuria with a positive nitrite. Her lactic acid level of 1.9 was normal. With these findings the patient was started on IV fluids and given 1 g of Rocephin IV. Subsequently the patient was admitted for further evaluation and treatment. Past Medical History Cardiac Medical History: Denies: Coronary Artery Disease, Myocardial Infarction, Hypertension Pulmonary Medical History: Reports: Bronchitis, Pneumonia Denies: Asthma, Chronic Obstructive Pulmonary Disease (COPD), Sleep Apnea EENT Medical History: Reports: None Neurological Medical History: Denies: Hemorrhagic CVA, Ischemic CVA, Multiple Sclerosis, Seizures Endocrine Medical History: Denies: Diabetes Mellitus Type 1, Diabetes Mellitus Type 2, Hyperthyroidism, Hypothyroidism Renal/ Medical History: Denies: Chronic Kidney Disease, Nephrolithiasis Malignancy Medical History: Reports: Breast Cancer - With known metastatic disease. GI Medical History: Denies: Cirrhosis, Hepatitis, Hiatal Hernia Musculoskeltal Medical History: Reports: Arthritis Denies: Fibromyalgia, Gout Skin Medical History: Denies: Eczema, Psoriasis Psychiatric Medical History: Denies: Alcohol Dependency, Substance Abuse, Tobacco Dependency Traumatic Medical History: Reports: None Hematology: Reports: Anemia Denies: Bleeding Tendencies Infectious Medical History: Reports: None Past Surgical History Past Surgical History: Reports: Hysterectomy, Other - Bladder surgery Social History Information Source: Patient Lives with: Spouse/Significant other Smoking Status: Never Smoker Frequency of Alcohol Use: None Hx Recreational Drug Use: No Drugs: None Hx Prescription Drug Abuse: No - Advance Directive Resuscitation Status: Full Code Surrogate healthcare decision maker:: Zain Gutiérrez Junior Family History Family History: Malignancy Parental Family History Reviewed: Yes Children Family History Reviewed: No Sibling(s) Family History Reviewed.: Yes Medication/Allergy Home Medications: Zolpidem Tartrate [Ambien] 10 mg PO QHS PRN 06/12/14 Acetaminophen [Tylenol Extra Strength 500 mg Tablet] 1 tab PO PRN PRN 11/24/18 Acetaminophen/Caffeine [Excedrin Tension Headache Cplt] 1 each PO PRN PRN 11/24/18 Aspirin [Aspirin 325 mg Tablet] 325 mg PO DAILY 11/24/18 Capecitabine [Xeloda 500 mg Tablet] 1,500 mg PO BID 11/24/18 Cyclobenzaprine HCl [Flexeril 5 mg Tablet] 5 mg PO TID 11/24/18 Docusate Sodium [Colace] 100 mg PO DAILY 11/24/18 Folic Acid [Folvite 1 mg Tablet] 1 mg PO DAILY 11/24/18 Ibuprofen 200 mg PO BID 11/24/18 Phenazopyridine HCl [Pyridium] 200 mg PO DAILY PRN 11/24/18 Promethazine HCl [Phenergan 25 mg Tablet] 12.5 mg PO Q6H PRN 11/24/18 Sertraline HCl [Zoloft] 100 mg PO DAILY 11/24/18 Simvastatin 20 mg PO QHS 11/24/18 Allergies/Adverse Reactions: Sulfa (Sulfonamide Antibiotics) Allergy (Intermediate, Verified 11/24/18 15:37) Hives acetaminophen [From Midol] Allergy (Mild, Verified 11/24/18 15:37) increase heart rate pamabrom [From Midol] Allergy (Mild, Verified 11/24/18 15:37) increase heart rate pyrilamine maleate [From Midol] Allergy (Mild, Verified 11/24/18 15:37) increase heart rate Review of Systems Constitutional: PRESENT: other - Diaphoresis. ABSENT: chills, fever(s) Eyes: ABSENT: visual disturbances, other - Ocular pain Ears: ABSENT: hearing changes, other - Ear pain Nose, Mouth, and Throat: ABSENT: mouth pain, sore throat Cardiovascular: PRESENT: as per HPI, dyspnea on exertion, palpitations - Rapid heart rate. ABSENT: chest pain, edema, orthropnea Respiratory: PRESENT: as per HPI, cough, dyspnea Gastrointestinal: PRESENT: as per HPI, abdominal pain, nausea, vomiting. ABSENT: constipation, diarrhea, hematemesis, hematochezia, melena Genitourinary: PRESENT: as per HPI. ABSENT: dysuria, hematuria Musculoskeletal: ABSENT: back pain, joint swelling Integumentary: ABSENT: pruritus, rash Neurological: ABSENT: confusion, convulsions, memory loss Psychiatric: ABSENT: anxiety, depression Endocrine: ABSENT: cold intolerance, heat intolerance Hematologic/Lymphatic: ABSENT: easy bleeding, easy bruising Physical Exam Vital Signs: Temp Pulse Resp BP Pulse Ox 97.4 F 125 H 26 H 119/73 93 11/24/18 15:44 11/24/18 15:44 11/24/18 19:01 11/24/18 19:00 11/24/18 19:01 Intake & Output 11/22/18 11/23/18 11/24/18 23:59 23:59 23:59 Intake Total 2000 Output Total 550 Balance 1450 Weight 75.5 kg General appearance: PRESENT: cooperative, mild distress - Due to general illness Head exam: PRESENT: atraumatic, normocephalic Eye exam: PRESENT: conjunctiva pink, EOMI. ABSENT: scleral icterus Ear exam: PRESENT: normal external ear exam. ABSENT: bleeding, drainage Mouth exam: PRESENT: dry mucosa, neck supple Neck exam: ABSENT: JVD, thyromegaly, tracheal deviation Respiratory exam: PRESENT: clear to auscultation ramon, symmetrical, unlabored Cardiovascular exam: PRESENT: RRR, tachycardia. ABSENT: clicks, gallop, rubs Pulses: PRESENT: normal radial pulses, normal dorsalis pedis pul Vascular exam: PRESENT: pallor. ABSENT: normal capillary refill - Sluggish capillary refill approximately 3 seconds GI/Abdominal exam: PRESENT: normal bowel sounds, soft, tenderness - Mild to moderate epigastric tenderness on palpation Rectal exam: PRESENT: deferred Extremities exam: ABSENT: joint swelling, pedal edema Musculoskeletal exam: ABSENT: deformity, dislocation Neurological exam: PRESENT: alert, oriented to person, oriented to place, oriented to time, oriented to situation, CN II-XII grossly intact. ABSENT: motor sensory deficit Psychiatric exam: PRESENT: appropriate affect, normal mood Skin exam: PRESENT: dry, intact, pallor, warm. ABSENT: jaundice, rash, urticaria Results Laboratory Results: 11/24/18 14:48 11/24/18 17:12 11/24/18 11/24/18 11/24/18 14:48 14:48 16:00 WBC 8.5 RBC 3.06 L Hgb 8.1 L Hct 24.9 L MCV 81 MCH 26.5 L MCHC 32.6 RDW 18.5 H Plt Count 615 H Seg Neutrophils % 67.8 Lymphocytes % 20.6 Monocytes % 10.5 Eosinophils % 0.0 Basophils % 1.1 Absolute Neutrophils 5.8 Absolute Lymphocytes 1.8 Absolute Monocytes 0.9 Absolute Eosinophils 0.0 Absolute Basophils 0.1 VBG pH VBG pCO2 VBG HCO3 VBG Base Excess Sodium Cancelled Potassium Cancelled Chloride Cancelled Carbon Dioxide Cancelled Anion Gap Cancelled BUN Cancelled Creatinine Cancelled Est GFR ( Amer) Cancelled Est GFR (Non-Af Amer) Cancelled Glucose Cancelled Lactic Acid 1.9 Calcium Cancelled Total Bilirubin Cancelled AST Cancelled ALT Cancelled Alkaline Phosphatase Cancelled Total Protein Cancelled Albumin Cancelled Urine Color Urine Appearance Urine pH Ur Specific [place] Urine Protein Urine Glucose (UA) Urine Ketones Urine Blood Urine Nitrite Ur Leukocyte Esterase Urine WBC (Auto) Urine RBC (Auto) 11/24/18 11/24/18 11/24/18 16:00 16:00 17:12 WBC RBC Hgb Hct MCV MCH MCHC RDW Plt Count Seg Neutrophils % Lymphocytes % Monocytes % Eosinophils % Basophils % Absolute Neutrophils Absolute Lymphocytes Absolute Monocytes Absolute Eosinophils Absolute Basophils VBG pH 7.26 L VBG pCO2 53.7 VBG HCO3 23.6 VBG Base Excess -4.2 Sodium Cancelled 141.8 Potassium Cancelled 4.3 Chloride Cancelled 105 Carbon Dioxide Cancelled 25 Anion Gap Cancelled 12 BUN Cancelled 86 H Creatinine Cancelled 2.52 H Est GFR ( Amer) Cancelled 23 L Est GFR (Non-Af Amer) Cancelled 19 L Glucose Cancelled 119 H Lactic Acid Calcium Cancelled 10.7 H Total Bilirubin Cancelled 0.3 AST Cancelled 17 ALT Cancelled 16 Alkaline Phosphatase Cancelled 93 Total Protein Cancelled 6.5 Albumin Cancelled 3.5 Urine Color Urine Appearance Urine pH Ur Specific [place] Urine Protein Urine Glucose (UA) Urine Ketones Urine Blood Urine Nitrite Ur Leukocyte Esterase Urine WBC (Auto) Urine RBC (Auto) 11/24/18 17:48 WBC RBC Hgb Hct MCV MCH MCHC RDW Plt Count Seg Neutrophils % Lymphocytes % Monocytes % Eosinophils % Basophils % Absolute Neutrophils Absolute Lymphocytes Absolute Monocytes Absolute Eosinophils Absolute Basophils VBG pH VBG pCO2 VBG HCO3 VBG Base Excess Sodium Potassium Chloride Carbon Dioxide Anion Gap BUN Creatinine Est GFR ( Amer) Est GFR (Non-Af Amer) Glucose Lactic Acid Calcium Total Bilirubin AST ALT Alkaline Phosphatase Total Protein Albumin Urine Color ORANGE Urine Appearance SLIGHTLY-CLOUDY Urine pH 5.0 Ur Specific [place] 1.014 Urine Protein NEGATIVE Urine Glucose (UA) NEGATIVE Urine Ketones NEGATIVE Urine Blood SMALL H Urine Nitrite POSITIVE H Ur Leukocyte Esterase NEGATIVE Urine WBC (Auto) 11 Urine RBC (Auto) 18 11/24/18 11/24/18 11/24/18 14:48 16:00 17:12 Troponin I Cancelled Cancelled 0.079 EKG Comments: Interpreted by me: Sinus tachycardia at 117, poor R wave progression noted, left axis deviation noted. Impressions: Chest X-Ray 11/24/18 15:25 IMPRESSION: Interval development of numerous bilateral pulmonary nodules/ masses. Status: Image reviewed by me - Chest x-ray: Numerous bilateral metastatic lesions noted. Assessment & Plan - Diagnosis (1) SIRS (systemic inflammatory response syndrome) Is this a current diagnosis for this admission?: Yes Plan: Patient is noted to have tachycardia and a probable infection. Patient may also be more likely to develop sepsis based on her immunocompromise status due to new chemotherapy. However patient has a negative lactic acid which would mitigate against a diagnosis of sepsis. Her vital signs will be observed closely as she is rehydrated and her SIRS syndrome findings may well be due to a noninfectious etiology. Laboratory values will be followed closely with a daily CBC, metabolic profile and magnesium level. (2) UTI (urinary tract infection) Qualifiers: Urinary tract infection type: site unspecified Hematuria presence: without hematuria Qualified Code(s): N39.0 - Urinary tract infection, site not specified Is this a current diagnosis for this admission?: Yes Plan: Patient will be started on Rocephin 1 g IV daily and urine cultures as well as blood cultures are pending. Therapy can be narrowed and scope when culture and sensitivity results are available. (3) RUBEN (acute kidney injury) Is this a current diagnosis for this admission?: Yes Plan: Patient will be given IV fluid rehydration utilizing D5 normal saline at 250 mL/h. Her renal status will be monitored closely with daily metabolic profiles and magnesium levels. (4) Dehydration Is this a current diagnosis for this admission?: Yes Plan: Patient will be rehydrated with D5 normal saline at 250 mL/h. Her hydration status will be monitored with close clinical evaluation of vital signs and daily laboratory evaluations of her metabolic profile and magnesium levels. (5) Elevated troponin Is this a current diagnosis for this admission?: Yes Plan: Patient is noted to have an elevated troponin and she did complain of some epigastric discomfort. Her troponin and other cardiac enzymes will be followed on a every 6 hours basis x3 to evaluate for possible myocardial ischemia or injury. Further evaluation and/or intervention will be based upon those results. (6) Nausea and vomiting Qualifiers: Vomiting type: bilious vomiting Qualified Code(s): R11.14 - Bilious vo miting Is this a current diagnosis for this admission?: Yes Plan: Patient's nausea and vomiting will be treated with IV fluid replacement as well as supportive cares and symptomatic therapy with Zofran 4 mg sublingual or IV every 4 hours as needed for nausea or vomiting (7) Epigastric abdominal pain Is this a current diagnosis for this admission?: Yes Plan: Patient's epigastric pain will be treated with morphine sulfate 2-4 mg IV every 2 hours as needed pain with dosage based on pain level. (8) Metastatic breast carcinoma Is this a current diagnosis for this admission?: Yes Plan: Hematology/oncology consultation may be obtained at the discretion of her daytime hospitalist provider. (9) Anemia Qualifiers: Anemia type: other cause Other causes of anemia: other cause, not classified Qualified Code(s): D64.89 - Other specified anemias Is this a current diagnosis for this admission?: Yes Plan: Patient has a long-standing anemia most likely due to her chronic disease (metastatic carcinoma of the breast). Her hemoglobin monitored on a daily basis with a daily CBC and transfusion will be administered if appropriate. Hematology oncology consultation may be obtained at the discretion of her daytime provider. - Time Time Spent: 30 to 50 Minutes Critical Time spent with patient: Less than 15 minutes Medications reviewed and adjusted accordingly: Yes Anticipated discharge: Home, Home with Homehealth - Inpatient Certification Based on my medical assessment, after consideration of the patient's c omorbidities, presenting symptoms, or acuity I expect that the services needed warrant INPATIENT care.: Yes I certify that my determination is in accordance with my understanding of Medicare's requirements for reasonable and necessary INPATIENT services [42 CFR 412.3e].: Yes Medical Necessity: Significant Comorbidiites Make Outpatient Treatment Too Risky, Need Close Monitoring Due to Risk of Patient Decompensation, Need For IV Fluids, Need For Continuous Telemetry Monitoring, Need for Pain Control, Need for IV Antibiotics, Risk of Complication if Not Cared For in Hospital
[2018-11-25] MEDS ORDERED: LORAZEPAM INJ 2 MG/1 ML VIAL ONE (03:08)
[2018-11-25] MEDS: LORAZEPAM INJ 2 MG/1 ML VIAL IV PRN ×3 (03:12→20:58)
[2018-11-25] MEDS: DEXTROSE 5%-NORMAL SALINE 1,000 ML IV PRN (03:13)
[2018-11-25 04:34] LABS: ABSOLUTE LYMPHOCYTES (AUTO) 0.7 10^3/uL (0.5-4.7); ABSOLUTE MONOCYTES (AUTO) 0.5 10^3/uL (0.1-1.4); ABSOLUTE NEUT (AUTO) 4.7 10^3/uL (1.7-8.2); BASOPHILS % (AUTO) 0.6 % (0-2); HEMATOCRIT 18.5 % (36.0-47.0); LYMPHOCYTES % (AUTO) 11.2 % (13-45); MEAN CORPUSCULAR HEMOGLOBIN 26.3 pg (27.0-33.4); MEAN CORPUSCULAR HGB CONC 32.3 g/dL (32.0-36.0); MEAN CORPUSCULAR VOLUME 82 fl (80-97); MONOCYTES % (AUTO) 8.2 % (3-13); PLATELET COUNT 325 10^3/uL (150-450); RED BLOOD COUNT 2.26 10^6/uL (3.72-5.28); TOTAL CELLS COUNTED % (AUTO) 100 %; WHITE BLOOD COUNT 5.9 10^3/uL (4.0-10.5)
[2018-11-25 04:36] LABS: ARTERIAL BLOOD BASE EXCESS -5.4 mmol/L; ARTERIAL BLOOD H2CO3 1.31 mmol/L (1.05-1.35); ARTERIAL BLOOD HCO3 20.6 mmol/L (20-24); ARTERIAL BLOOD O2 SATURATION 97.9 % (94-98); ARTERIAL BLOOD PCO2 43.6 mmHg (35-45); ARTERIAL BLOOD PH 7.29 (7.35-7.45); ARTERIAL BLOOD PO2 117.6 mmHg (80-100); ARTERIAL BLOOD TOTAL CO2 21.9 mmol/L (21-25)
[2018-11-25 04:37] LABS: ARTERIAL BLOOD FIO2 4L
[2018-11-25 04:51] LABS: ANION GAP 8 (5-19); BLOOD UREA NITROGEN 72 mg/dL (7-20); CALCIUM 9.1 mg/dL (8.4-10.2); CARBON DIOXIDE 22 mmol/L (22-30); CHLORIDE 112 mmol/L (98-107); GLUCOSE 329 mg/dL (75-110); POTASSIUM 4.4 mmol/L (3.6-5.0); SODIUM 141.8 mmol/L (137-145)
[2018-11-25] MEDS ORDERED: ACETAMINOPHEN 325 MG TABLET PO PRN (05:04)
[2018-11-25] MEDS ORDERED: NORMAL SALINE 250 ML IV PRN ×2 (05:04)
[2018-11-25] MEDS ORDERED: DIPHENHYDRAMINE HCL 25 MG CAPSULE PO PRN (05:04)
[2018-11-25] MEDS ORDERED: FUROSEMIDE INJ/PF 20 MG/2 ML SDV IV PRN (05:04)
[2018-11-25] MEDS ORDERED: PHENYLEPHRINE HCL INJ/PF 10 MG/1 ML SDV ONE (05:10)
--- NOTE | 2018-11-25 05:24 | Progress Note ---
Provider Note Provider Note: Critical care note: Critical care began 453 Problem hypotension, tachypnea, tachycardia and air hunger. Patient seen and evaluated with a persistent tachypnea with shallow breathing using her abdominal musculature. She has significant air hunger that she expresses as feeling anxious and unable to rest. She has been noted to be slightly more tachypneic and slightly more tachycardic as well as slightly more hypotensive over the last several hours. On exam the patient has diminished breath sounds throughout her chest unchanged from her initial evaluation, with the exception of her increased tachypnea. Her heart shows a regular rate and rhythm without murmurs but tachycardia is noted and is slightly increased from her original evaluation. Patient's blood pressure is in the 80s systolic over 50s and 60s diastolic. Patient appears to be psychiatrically significantly more anxious than she was at the time my previous evaluation. ABGs were obtained shortly before my seeing the patient and her pH is 7.29 with a PO2 of 117 on O2 at 4 L per nasal cannula. Given these findings and the results of my evaluation felt was most appropriate transfer the patient to the ICU. In the interim her morning lab work results became available and her hemoglobin had dropped to 6.0. Therefore the patient had 2 units of packed red blood cells ordered which will be given when she arrives in the ICU additionally she will be started on an Raghu-Synephrine drip to support her blood pressure until such time as it improves after the transfusions have been administered. Additionally the patient will be offered BiPAP to help with her respiratory status due to her work of breathing and sensation of air hunger. She will be further evaluated on an ongoing basis throughout the remainder of her hospital course. Critical care ended 525. Total critical care time 32 minutes.
[2018-11-25] MEDS: DEXTROSE 5%-WATER 250 ML with PHENYLEPHRINE HCL 40 MG IV PRN ×2 (07:19)
[2018-11-25] MEDS: HEPARIN SOD (PORCINE) 5,000 UNIT/ML 1 ML SYRINGE SUBCUT SCH ×3 (07:36→21:55)
[2018-11-25] MEDS: METOCLOPRAMIDE HCL INJ/PF 10 MG/2 ML SDV IV SCH ×3 (07:41→17:07)
[2018-11-25] MEDS: NORMAL SALINE 1000 ML 1,000 ML IV PRN ×2 (07:47→21:53)
[2018-11-25 08:24] LABS: CREATINE KINASE MB 1.27 ng/mL (<4.55); TROPONIN I 0.084 ng/mL
[2018-11-25] MEDS: DOCUSATE SODIUM 100 MG CAPSULE PO SCH ×3 (09:28→16:59)
[2018-11-25] MEDS: PANTOPRAZOLE SODIUM 40 MG VIAL IV SCH (09:28)
[2018-11-25] MEDS: ASPIRIN 325 MG TABLET, ENT COATED PO SCH ×2 (09:28→10:06)
[2018-11-25] MEDS ORDERED: METHYLPREDNISOLONE INJ 40 MG/1 ML SDV IV SCH (09:45)
[2018-11-25] MEDS ORDERED: ASPIRIN 325 MG TABLET PO SCH (10:00)
[2018-11-25] MEDS: METHYLPREDNISOLONE INJ 125 MG/2 ML SDV IV SCH ×2 (10:11→17:07)
[2018-11-25] MEDS: CEFTRIAXONE 1 GM/D5W RTU 1 GM/50 ML RTUPB IV SCH (17:07)
[2018-11-25 17:54] LABS: HEMATOCRIT 25.6 % (36.0-47.0); HEMOGLOBIN 8.3 g/dL (12.0-15.5); MEAN CORPUSCULAR HEMOGLOBIN 26.7 pg (27.0-33.4); MEAN CORPUSCULAR HGB CONC 32.6 g/dL (32.0-36.0); MEAN CORPUSCULAR VOLUME 82 fl (80-97); PLATELET COUNT 370 10^3/uL (150-450); RED BLOOD COUNT 3.12 10^6/uL (3.72-5.28); RED CELL DISTRIBUTION WIDTH 17.2 % (11.5-14.0); WHITE BLOOD COUNT 8.3 10^3/uL (4.0-10.5)
--- NOTE | 2018-11-25 20:23 | PDOC PROGRESS REPORT ---
Subjective Progress Note for:: 11/25/18 Subjective:: She was really short of breath and working very hard this morning to breathe. We put her on BiPAP and she is been on it all day. Blood pressure is improved but is still requiring some support from Raghu-Synephrine. She has some family coming in from out of town. Reason For Visit: POST CHEMOTHERAPY NAUSEA AND VOMITING Physical Exam Vital Signs: Temp Pulse Resp BP Pulse Ox 97.8 F 126 H 31 H 98/81 L 98 11/25/18 18:00 11/25/18 15:19 11/25/18 16:30 11/25/18 16:30 11/25/18 16:30 Intake & Output 11/24/18 11/25/18 11/26/18 06:59 06:59 06:59 Intake Total 3000 2408 Output Total 575 670 Balance 2425 1738 Weight 74.7 kg General appearance: PRESENT: disheveled, severe distress - She looked panicked while she was gasping for breath Respiratory exam: PRESENT: accessory muscle use, crackles, prolonged expiratory phas, rhonchi, symmetrical, tachypnea. ABSENT: unlabored, wheezes Cardiovascular exam: PRESENT: tachycardia Vascular exam: PRESENT: normal capillary refill GI/Abdominal exam: PRESENT: normal bowel sounds, soft. ABSENT: distended, guarding, rebound, tenderness Extremities exam: ABSENT: clubbing, pedal edema Musculoskeletal exam: PRESENT: normal inspection. ABSENT: deformity Neurological exam: PRESENT: alert, awake, oriented to person, oriented to place, oriented to situation Psychiatric exam: PRESENT: anxious Skin exam: PRESENT: dry, warm Results Laboratory Results: 11/25/18 17:30 11/25/18 04:15 11/25/18 11/25/18 11/25/18 02:10 04:15 04:15 WBC 5.9 RBC 2.26 L Hgb 6.0 L D Hct 18.5 L MCV 82 MCH 26.3 L MCHC 32.3 RDW 18.0 H Plt Count 325 Seg Neutrophils % 80.0 H Lymphocytes % 11.2 L Monocytes % 8.2 Eosinophils % 0.0 Basophils % 0.6 Absolute Neutrophils 4.7 Absolute Lymphocytes 0.7 Absolute Monocytes 0.5 Absolute Eosinophils 0.0 Absolute Basophils 0.0 Carbonic Acid 1.54 H HCO3/H2CO3 Ratio 14:1 ABG pH 7.26 L ABG pCO2 51.0 H ABG pO2 32.7 L* ABG HCO3 22.4 ABG O2 Saturation 53.6 L ABG Base Excess -4.3 FiO2 5L Sodium 141.8 Potassium 4.4 Chloride 112 H Carbon Dioxide 22 Anion Gap 8 BUN 72 H Creatinine 1.84 H Est GFR ( Amer) 34 L Est GFR (Non-Af Amer) 28 L Glucose 329 H Calcium 9.1 Magnesium 1.6 Blood Type Antibody Screen 11/25/18 11/25/18 11/25/18 04:15 05:19 17:30 WBC 8.3 RBC 3.12 L Hgb 8.3 L D Hct 25.6 L MCV 82 MCH 26.7 L MCHC 32.6 RDW 17.2 H Plt Count 370 Seg Neutrophils % Lymphocytes % Monocytes % Eosinophils % Basophils % Absolute Neutrophils Absolute Lymphocytes Absolute Monocytes Absolute Eosinophils Absolute Basophils Carbonic Acid 1.31 HCO3/H2CO3 Ratio 15:1 ABG pH 7.29 L ABG pCO2 43.6 ABG pO2 117.6 H ABG HCO3 20.6 ABG O2 Saturation 97.9 ABG Base Excess -5.4 FiO2 4L Sodium Potassium Chloride Carbon Dioxide Anion Gap BUN Creatinine Est GFR ( Amer) Est GFR (Non-Af Amer) Glucose Calcium Magnesium Blood Type O POSITIVE Antibody Screen NEGATIVE 11/24/18 11/24/18 11/24/18 14:48 16:00 17:12 Creatine Kinase CK-MB (CK-2) Troponin I Cancelled Cancelled 0.079 11/24/18 11/24/18 11/25/18 19:53 19:53 01:36 Creatine Kinase < 20 L < 20 L CK-MB (CK-2) 1.23 Troponin I 0.099 11/25/18 11/25/18 11/25/18 01:36 04:15 07:41 Creatine Kinase Cancelled CK-MB (CK-2) 1.34 1.27 Troponin I 0.102 0.084 11/25/18 07:41 Creatine Kinase < 20 L CK-MB (CK-2) Troponin I Impressions: Chest X-Ray 11/24/18 15:25 IMPRESSION: Interval development of numerous bilateral pulmonary nodules/ masses. Assessment & Plan - Diagnosis (1) Acute hypoxemic respiratory failure Is this a current diagnosis for this admission?: Yes Plan: This is actually acute on chronic. She is on 3-4 L at home. Her anemia is at least playing some part in this. We have given her a couple units of blood. We put her on BiPAP and she is on been on BiPAP all day but her respirations of stabilized somewhat. Empirically started some steroids. (2) RUBEN (acute kidney injury) Is this a current diagnosis for this admission?: Yes Plan: She is getting some blood and some IV fluids. Were monitoring her organ function. (3) Anemia Qualifiers: Anemia type: other cause Other causes of anemia: other cause, not cl assified Qualified Code(s): D64.89 - Other specified anemias Is this a current diagnosis for this admission?: Yes Plan: Not sure the etiology of this. She has not been showing any signs of any bleeding. We gave her 2 units of packed red blood cells. We will monitor her to see if she needs any more. (4) UTI (urinary tract infection) Qualifiers: Urinary tract infection type: site unspecified Hematuria presence: without hematuria Qualified Code(s): N39.0 - Urinary tract infection, site not specified Is this a current diagnosis for this admission?: Yes Plan: This is almost an incidental afterthought. She is being empirically treated with Rocephin. (5) Metastatic breast carcinoma Is this a current diagnosis for this admission?: Yes Plan: She was having a lot of nausea and vomiting with her chemotherapy. She was able to keep anything down. She was getting weaker and her breathing got worse. Her chest x-ray looks pretty bad. It is full of metastases and appears to have progressed despite chemotherapy. Apparently her daughter is a hospice nurse and is trying to get them to move towards comfort measures, and there is another son that is supposed to be flying in this evening from out of state, and the family is going to have a conversation about what the next move is for this patient. - Time Time Spent with patient: 25-34 minutes
[2018-11-26] MEDS: MORPHINE SULFATE 10 MG/ML INJ IV PRN ×4 (00:20→20:30)
[2018-11-26] MEDS: METOCLOPRAMIDE HCL INJ/PF 10 MG/2 ML SDV IV SCH ×4 (00:20→17:11)
[2018-11-26] MEDS: METHYLPREDNISOLONE INJ 125 MG/2 ML SDV IV SCH ×3 (01:37→17:12)
[2018-11-26] MEDS: NORMAL SALINE 1000 ML 1,000 ML IV PRN ×5 (01:37→17:08)
[2018-11-26] MEDS: DEXTROSE 5%-WATER 250 ML with PHENYLEPHRINE HCL 40 MG IV PRN ×2 (03:23)
[2018-11-26] MEDS: HEPARIN SOD (PORCINE) 5,000 UNIT/ML 1 ML SYRINGE SUBCUT SCH ×3 (05:38→22:00)
[2018-11-26 05:51] LABS: ABSOLUTE LYMPHOCYTES (AUTO) 0.4 10^3/uL (0.5-4.7); ABSOLUTE MONOCYTES (AUTO) 0.3 10^3/uL (0.1-1.4); BASOPHILS % (AUTO) 0.1 % (0-2); EOSINOPHILS % (AUTO) 0.1 % (0-6); HEMATOCRIT 25.5 % (36.0-47.0); HEMOGLOBIN 8.2 g/dL (12.0-15.5); LYMPHOCYTES % (AUTO) 5.8 % (13-45); MEAN CORPUSCULAR HEMOGLOBIN 26.8 pg (27.0-33.4); MEAN CORPUSCULAR HGB CONC 32.2 g/dL (32.0-36.0); MEAN CORPUSCULAR VOLUME 83 fl (80-97); PLATELET COUNT 363 10^3/uL (150-450); RED BLOOD COUNT 3.08 10^6/uL (3.72-5.28); RED CELL DISTRIBUTION WIDTH 17.4 % (11.5-14.0); TOTAL CELLS COUNTED % (AUTO) 100 %; WHITE BLOOD COUNT 7.7 10^3/uL (4.0-10.5)
[2018-11-26 06:07] LABS: ANION GAP 8 (5-19); BLOOD UREA NITROGEN 58 mg/dL (7-20); CALCIUM 8.2 mg/dL (8.4-10.2); CARBON DIOXIDE 18 mmol/L (22-30); CHLORIDE 119 mmol/L (98-107); GLUCOSE 193 mg/dL (75-110); POTASSIUM 5.1 mmol/L (3.6-5.0); SODIUM 144.5 mmol/L (137-145)
[2018-11-26] MEDS: ASPIRIN 325 MG TABLET, ENT COATED PO SCH (09:33)
[2018-11-26] MEDS: DOCUSATE SODIUM 100 MG CAPSULE PO SCH ×2 (09:33→17:10)
[2018-11-26] MEDS: PANTOPRAZOLE SODIUM 40 MG VIAL IV SCH (09:38)
[2018-11-26] MEDS: LORAZEPAM INJ 2 MG/1 ML VIAL IV PRN (13:03)
[2018-11-26] MEDS: CEFTRIAXONE 1 GM/D5W RTU 1 GM/50 ML RTUPB IV SCH (17:11)
--- NOTE | 2018-11-26 19:01 | PDOC PROGRESS REPORT ---
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 She had admitted for nausea vomiting and persistent hypotension. Today I have a long discussion regarding the prognosis the patient with the POA and other family members. After the discussion the POA opted for comfort care. I consulted hospice nurse to facilitate that. Reason For Visit: POST CHEMOTHERAPY NAUSEA AND VOMITING Physical Exam Vital Signs: Temp Pulse Resp BP Pulse Ox 96.4 F L 126 H 17 86/63 L 97 11/26/18 18:00 11/26/18 18:00 11/26/18 18:54 11/26/18 18:00 11/26/18 18:54 Intake & Output 11/25/18 11/26/18 11/27/18 06:59 06:59 06:59 Intake Total 3000 4816 2875 Output Total 575 1155 290 Balance 2425 3661 2585 Weight 74.7 kg 79.6 kg 79.6 kg Results Laboratory Results: 11/26/18 05:42 11/26/18 05:42 11/26/18 11/26/18 05:42 05:42 WBC 7.7 RBC 3.08 L Hgb 8.2 L Hct 25.5 L MCV 83 MCH 26.8 L MCHC 32.2 RDW 17.4 H Plt Count 363 Seg Neutrophils % 90.0 H Lymphocytes % 5.8 L Monocytes % 4.0 Eosinophils % 0.1 Basophils % 0.1 Absolute Neutrophils 7.0 Absolute Lymphocytes 0.4 L Absolute Monocytes 0.3 Absolute Eosinophils 0.0 Absolute Basophils 0.0 Sodium 144.5 Potassium 5.1 H Chloride 119 H Carbon Dioxide 18 L Anion Gap 8 BUN 58 H Creatinine 1.64 H Est GFR ( Amer) 38 L Est GFR (Non-Af Amer) 32 L Glucose 193 H Calcium 8.2 L Magnesium 1.6 11/24/18 11/24/18 11/24/18 14:48 16:00 17:12 Creatine Kinase CK-MB (CK-2) Troponin I Cancelled Cancelled 0.079 11/24/18 11/24/18 11/25/18 19:53 19:53 01:36 Creatine Kinase < 20 L < 20 L CK-MB (CK-2) 1.23 Troponin I 0.099 11/25/18 11/25/18 11/25/18 01:36 04:15 07:41 Creatine Kinase Cancelled CK-MB (CK-2) 1.34 1.27 Troponin I 0.102 0.084 11/25/18 07:41 Creatine Kinase < 20 L CK-MB (CK-2) Troponin I Impressions: Chest X-Ray 11/24/18 15:25 IMPRESSION: Interval development of numerous bilateral pulmonary nodules/ masses. Assessment & Plan - Diagnosis (1) Metastatic breast carcinoma Is this a current diagnosis for this admission?: Yes Plan: Comfort Care (2) Nausea and vomiting Qualifiers: Vomiting type: bilious vomiting Qualified Code(s): R11.14 - Bilious vomiting Is this a current diagnosis for this admission?: Yes Plan: Comfort care
[2018-11-27] MEDS: MORPHINE SULFATE 10 MG/ML INJ IV PRN ×6 (01:36→23:04)
[2018-11-27] MEDS: LORAZEPAM INJ 2 MG/1 ML VIAL IV PRN ×3 (10:44→21:45)
[2018-11-28] MEDS: LORAZEPAM INJ 2 MG/1 ML VIAL IV PRN ×4 (02:43→19:50)
[2018-11-28 03:40] VITALS: BP 79/48
[2018-11-28] MEDS: MORPHINE SULFATE 10 MG/ML INJ IV PRN ×4 (05:15→17:37)
--- NOTE | 2018-12-26 13:53 | Death Summary ---
Summary Date : 11/28/18 Time of :: 22:00 Autopsy: No Resuscitation Status: Comfort Measures Only - Final Diagnosis (1) Metastatic breast carcinoma Is this a current diagnosis for this admission?: Yes (2) Nausea and vomiting Is this a current diagnosis for this admission?: Yes (3) RUBEN (acute kidney injury) Is this a current diagnosis for this admission?: Yes (4) Acute hypoxemic respiratory failure Is this a current diagnosis for this admission?: Yes (5) Anemia Is this a current diagnosis for this admission?: Yes (6) Elevated troponin Is this a current diagnosis for this admission?: Yes Hospital Course:: KARLY VASQUEZ is a 63 year old female who presented to the emergency room with a 1 day history of severe nausea and vomiting. She admits that she started a new chemotherapy medication on the day prior to admission and after the second dose of that medication began having severe nausea and vomiting with numerous episodes of emesis. She has been unable to keep oral fluids or solids on her stomach since that time. She further admits associated abdominal aching discomfort in the epigastric region, diaphoresis, a nonproductive cough and an increase in her normal level of dyspnea despite the use of home oxygen at 3-1/2 L/min per nasal cannula continuously.Patient transferred to ICU.Her initial blood work up showed HgB of 8.1 and later dropped to 6, at this point patient transfused 2 units of PRBC.Her BMP revealed BUN of 86 and and Cr 2.52.Patient is also hypotensive with BP 80/50 for which treated with NS and Levophed.Yaw acut on chronic hypoxemic respiratory failure pt had been on supplemental oxygen and BIPAP.Her CXR showed bilateral diffuse metastasis.Due to patient's serious condition and poor prognosis, Hospice nurse and myself had a long discussion with POA and other family members who had decided to make patient comfort care only.
== END 2018-11-28 22:50 | DRG 391 ==
LOC: ER 15:22 → EH 18:35 → 3W 21:19 → ICU 11-25 05:22 → 5 11-27 02:15
PROVIDERS: ADMIT Internal Medicine; ATTEND Internal Medicine
PROC: 5A09457 Assistance with Respiratory Ventilation, 24-96 Consecutive Hours, Continuous Positive Airway Pressure (ICD-10-PCS; principal; 2018-11-25)
PROC: 30233N1 Transfusion of Nonautologous Red Blood Cells into Peripheral Vein, Percutaneous Approach (ICD-10-PCS; 2018-11-25)
DX: R11.2 Nausea with vomiting, unspecified (principal); J96.21 Acute and chronic respiratory failure with hypoxia; N39.0 Urinary tract infection, site not specified; N17.9 Acute kidney failure, unspecified; C79.31 Secondary malignant neoplasm of brain; C78.02 Secondary malignant neoplasm of left lung; C78.01 Secondary malignant neoplasm of right lung; T45.1X5A Adverse effect of antineoplastic and immunosuppressive drugs, initial encounter; Z66 Do not resuscitate; C50.919 Malignant neoplasm of unspecified site of unspecified female breast; M19.90 Unspecified osteoarthritis, unspecified site; E86.0 Dehydration; Z99.81 Dependence on supplemental oxygen; D63.0 Anemia in neoplastic disease; D64.89 Other specified anemias; Z90.710 Acquired absence of both cervix and uterus; Z79.899 Other long term (current) drug therapy; Z79.82 Long term (current) use of aspirin; Z88.2 Allergy status to sulfonamides; Z88.8 Allergy status to other drugs, medicaments and biological substances; Z80.9 Family history of malignant neoplasm, unspecified
CPT/HCPCS: 36415; 36430; 71045; 80048; 80053; 81001; 82550; 82553; 82803; 83605; 83735; 84484; 85025; 85027; 85610; 86850; 86900; 86901; 86920; 87040; 87077; 87086; 87804; 93005; 93010; 94660; 96361; 96374; 99285; J0696; J1644; J2060; J2270; J2370; J2405; J2765; J2930; J7030; J7060; P9016; S0164